=== PATIENT | female | born 1995 | race Two or more races ===

== ENCOUNTER 2025-08-05 06:24 | Emergency (ER) | payer OTHER ==
[~2025-08-05] VITALS: Ht 160 cm; Wt 68.2 kg
[2025-08-05 06:59] VITALS: BP 114/65; PULSE 58; RESP 18; TEMP 97.7; O2SAT 99
[2025-08-05 08:04] LABS: APPEARANCE,URINE HAZY (CLEAR); GLUCOSE, URINE (UA) NEGATIVE (NEGATIVE); LEUKOCYTE ESTERASE ,URINE LARGE (NEGATIVE); NITRATE,URINE NEGATIVE (NEGATIVE); OCCULT BLOOD,URINE LARGE (NEGATIVE); SPECIFIC GRAVITIY, URINE 1.010 (1.003-1.030)
[2025-08-05 08:05] LABS: HCG,QUAL URINE NEGATIVE (NEGATIVE)
[2025-08-05 08:12] LABS: SULFOSALICYLIC ACID,URINE 2+ (Negative)
[2025-08-05 08:13] LABS: SQUAMOUS EPITHELIAL CELL,UR Few /LPF (None Seen)
[2025-08-05] MEDS ORDERED: NITR-104 PO (08:18)
[2025-08-05] MEDS: NITROFURANTOIN MONOHYD/M-CRYST 100 MG CAPSULE [MACROBID] PO ONE (08:28)
== END 2025-08-05 08:35 | disposition home or self-care (01) ==
LOC: EMS 06:24
DX: N39.0 Urinary tract infection, site not specified (principal)
CPT/HCPCS: 81001; 81002; 84703; 87077; 87086; 87186; 99283